=== PATIENT | male | born 1970 | race Caucasian/White ===

== ENCOUNTER 2019-02-08 07:09 | Inpatient (IN) ==
[2019-02-08] MEDS ORDERED: THIAMINE IM ONE (07:20)
[2019-02-08 07:51] LABS: BASO# 0.02 X1000 (0.0-0.2); BASO% 0.3 % (0.0-0.8); EOS# 0.08 X1000 (0.0-0.7); HEMOGLOBIN 17.3 g/dL (14.0-18.0); IMM GRAN# 0.03 X1000 (0.0-0.04); IMM GRAN% 0.4 % (0.0-0.5); LYMPH# 1.69 X1000 (1.2-3.4); MCH 30.8 PG (27-31); MCHC 35.3 g/dL (33-37); MCV 87.2 FL (81-99); MONO# 0.65 X1000 (0.11-0.59); MONO% 8.5 % (1.7-9.3); MPV 10.5 FL (7.4-10.4); NEUT# 5.22 X1000 (1.4-6.5); NEUT% 67.8 % (42.2-75.2); PLT 195 X1000 (130-400); RBC 5.62 XMIL (4.7-6.1); RDW 14.9 % (11.5-14.5); WBC 7.69 X1000 (4.8-10.8)
[2019-02-08 08:01] LABS: AGAP 13; ALBUMIN 4.6 g/dL (3.5-5.0); ALKALINE PHOSPHATASE 43 U/L (32-122); BUN 9 mg/dL (8-22); CALCIUM 8.6 mg/dL (8.8-10.2); CHLORIDE 96 mmol/L (98-107); COSMO 269; CREATININE 1.1 mg/dL (0.7-1.2); ESTIMATED GFR > 60; GLUCOSE 101 mg/dL (70-104); GOT 32 U/L (10-34); GPT 21 U/L (10-44); POTASSIUM 4.4 mmol/L (3.5-5.1); SODIUM 135 mmol/L (136-145); TCO2 27 mmol/L (25-35); TOTAL PROTEIN 7.8 g/dL (6.3-8.3)
--- NOTE | 2019-02-08 10:10 | PROVIDER DOCUMENTATION ---
This chart was entered by Tom Small Scribe, acting as scribe for Todd Gibbons MD. [id number] Abuse/Overdose - General Chief Complaint: Req. Detox Stated Complaint: ALCOHOL Time Seen by Provider: 02/08/19 07:19 Source: patient Allergies/Adverse Reactions: Allergies Allergy/AdvReac Type Severity Reaction Status Date / Time No Known Allergies Allergy Verified 02/08/19 08:53 Home Medications: Home Medication List Medication Instructions Recorded Confirmed Last Taken Type Paroxetine HCl [Paxil] 20 mg PO QAM 07/14/15 02/08/19 03/04/16 09:00 History Losartan Potassium 100 mg PO BID 02/08/19 02/08/19 Unknown History - History of Present Illness-Drug/Alcohol Nature of Presenting Problem: Pt is a 48 yom who presents to the ED with a detox request. Pt states a hx of alcoholism and states he was getting better. Pt reports he lost control of his alcohol intake two weeks ago and states he is now drinking half a case of beer per day. Pt states his last drink was one hour prior to arrival to the ED. Pt requests detox. Rehab has been notified of the pt. This episode of drinking or use began:: other (Two weeks ago, See HPI) Severity: reports: moderate Any injuries associated with this episode of intoxication?: No Similar Symptoms Previously?: No Recently seen or treated by another doctor?: No - Substance Abuse Substance Use: reports: alcohol - Alcohol Abuse Last Drink?: 06:00 Usually drinks:: binge Usual alcohol intake amount?: Half a case a day - Detox/Hospitalizations Previous detox/rehab admissions?: Yes Review of Systems - Adult - REVIEW OF SYSTEMS - ADULT Constitutional: reports: see HPI Eyes: reports: no symptoms reported Ears, Nose, Mouth & Throat: reports: no symptoms reported Cardiovascular: reports: no symptoms reported Respiratory: reports: no symptoms reported Gastrointestinal: reports: no symptoms reported Genitourinary: reports: no symptoms reported Musculoskeletal: reports: no symptoms reported Integumentary: reports: no symptoms reported Neurological: reports: no symptoms reported Psychiatric: reports: see HPI, alcohol/drug dependence Endocrine: reports: no symptoms reported Hematologic/Lymphatic: reports: no symptoms reported Allergic/Immunologic: reports: no symptoms reported All Other Systems: Reviewed and Negative Past History - Adult - PAST MEDICAL HISTORY-ADULT Review of Records: reports: Old Records Reviewed, Nursing Assessment Review, Medications Reviewed, Social history reviewed & non-contributory. Major Childhood Illnesses: reports: denies history Cardiovascular: reports: denies history Respiratory: reports: denies history Gastrointestinal: reports: denies history Obstetrical/Gynecological: reports: denies history Genitourinary: reports: denies history Musculoskeletal: reports: denies history Neurological: reports: denies history Psychiatric: reports: depression Endocrine/Immune: reports: denies history Other Conditions: reports: denies history - PRIOR SURGERIES/PROCEDURES Surgical/Procedure History: reports: appendectomy - IMMUNIZATION STATUS Childhood Immunizations: See Nurse Assessment Flu Vaccine: See Nurse Assessment - FAMILY HISTORY Family History: reviewed, not pertinent - SOCIAL HISTORY Smoking: denies, non-smoker Substance Use: alcohol Alcohol Use Frequency: every day Physical Exam-General - PHYSICAL EXAM-ADULT Initial Vital Signs Reviewed: Yes - CONSTITUTIONAL General Appearance: appears well, no apparent distress - EYES Eyes: PERRL/EOMI, pink conjunctivae - HEAD, EARS, NOSE, MOUTH & THROAT HENMT: moist mucous membranes - NECK Neck: non-tender, full range of motion - RESPIRATORY Respiratory: chest non-tender, lungs clear, normal breath sounds, no pleuratic chest pain, no respiratory distress - CARDIOVASCULAR Cardiovascular: normal peripheral pulses, regular rate, rhythm, no edema, no gallop - GASTROINTESTINAL (ABDOMEN) Abdominal Exam: non tender, soft - MUSCULOSKELETAL Extremity: normal range of motion, non-tender - SKIN Integumentary: normal color, warm/dry - NEUROLOGIC Neurologic: grossly normal, no motor/sensory deficits - PSYCHIATRIC Psych/Mental Status: normal mood/affect, normal thought content, normal thought process, oriented x 3 Progress - PLAN OF CARE/RESULTS Progress/Plan/Lab Results: Vital Signs - 8 hr 02/08/19 07:12 02/08/19 08:54 Temperature 98.6 F Pulse Rate 86 85 Respiratory Rate 18 18 Blood Pressure 168/110 145/94 O2 Sat by Pulse Oximetry 97 95 Laboratory Results - last 24 hr 02/08/19 02/08/19 02/08/19 07:25 07:25 07:25 WBC 7.69 RBC 5.62 Hgb 17.3 Hct 49.0 MCV 87.2 MCH 30.8 MCHC 35.3 RDW Std Deviation 14.9 H Plt Count 195 MPV 10.5 H Immature Gran % (Auto) 0.4 Neut % (Auto) 67.8 Lymph % (Auto) 22.0 [place] % (Auto) 8.5 Eos % (Auto) 1.0 Baso % (Auto) 0.3 Immature Gran # (Auto) 0.03 Neut # (Auto) 5.22 Lymph # (Auto) 1.69 [place] # (Auto) 0.65 H Eos # (Auto) 0.08 Baso # (Auto) 0.02 Sodium 135 L Potassium 4.4 Chloride 96 L Carbon Dioxide 27 Anion Gap 13 BUN 9 Creatinine 1.1 Estimated GFR/1.73 m2 > 60 BUN/Creatinine Ratio 8 Glucose 101 Calculated Osmolality 269 Calcium 8.6 L Total Bilirubin 0.50 AST 32 ALT 21 Alkaline Phosphatase 43 Total Protein 7.8 Albumin 4.6 Globulin 3.0 Albumin/Globulin Ratio 1.0 Plasma/Serum Ethyl Alc 218 H Orders Category Date Time Status Saline Loc NOW Care 02/08/19 10:04 Active ALCOHOL BLOOD Stat Lab 02/08/19 07:25 Completed CBC WITH ELECTRONIC DIFF [HEME] Stat Lab 02/08/19 07:25 Completed COMPREHENSIVE METABOLIC PANEL [CHEM] Stat Lab 02/08/19 07:25 Completed Thiamine Med 02/08/19 07:20 Discontinued 100 mg IM NOW ONE [facility] to [facility] pt and agreed to admit. Dr Jett agreed to admit and is putting in orders. Result Diagrams: 02/08/19 07:25 02/08/19 07:25 - CONSULTS/PCP/HOSPITALIST Notification #1 *Consult/PCP/Hospitalist*: Dr Jett Time Discussed: 10:08 Consult Disposition: Admit Departure - Departure Date of Disposition Decision: 02/08/19 Time of Disposition Decision: 10:08 DIAGNOSIS: Alcoholism Disposition: ADMITTED INPATIENT 09 Certified Medical Emergency: Emergent Condition: Fair Additional Freetext Instructions: ED Follow Up Instructions: You have been treated by a care provider in the Emergency Department. These instructions are being provided to you so you can have an understanding of how to care for yourself upon discharge. Upon discharge from the Emergency Department, you are responsible for making arrangements for follow-up care by a physician of your choice. Take all prescribed medications as directed. Return to the Emergency Department immediately for any new or worsening symptoms. You may call the Physician Referral phone number at [phone] to obtain a list of Physicians who are taking new patients. Referrals and Follow-Ups: Francisco Wesley MD [Primary Care Provider] - - Critical Care Note This patient required my direct & personal management of CC.: No Attestation - Physician/ SEAN Attestation Patient care was provided by Advanced Practice Provider:: No The physician spent face to face time with patient:: Yes Advanced Practice Provider documentation review:: Supervising physician onsite and consulted in the evaluation and care of this patient. The physician did have a face to face encounter with the patient. This chart was documented by the indicated scribe, (Tom Small, [place]) and accurately reflects the services I performed and decisions made by me, Todd Gibbons MD, as attested by the provider's signature.
[2019-02-08] MEDS ORDERED: DESYREL PO PRN (10:53)
[2019-02-08] MEDS ORDERED: DULCOLAX PR PRN (10:53)
[2019-02-08] MEDS ORDERED: TYLENOL PO PRN (10:53)
[2019-02-08] MEDS ORDERED: ZOFRAN ODT PO PRN (10:53)
[2019-02-08] MEDS ORDERED: TUBERSOL ID ONE (10:53)
[2019-02-08] MEDS ORDERED: NICODERM PATCH TD PRN (10:53)
[2019-02-08] MEDS ORDERED: MAALOX PLUS LIQUID PO PRN (10:53)
[2019-02-08] MEDS ORDERED: MOTRIN PO PRN (10:53)
[2019-02-08] MEDS ORDERED: SENOKOT PO PRN (10:53)
[2019-02-08] MEDS ORDERED: IMODIUM PO PRN ×2 (10:53)
[2019-02-08] MEDS ORDERED: D5W 1,000 ML IV PRN (10:53)
[2019-02-08] MEDS ORDERED: ZOFRAN IV PRN (10:53)
[2019-02-08] MEDS ORDERED: ZOFRAN IM PRN (10:53)
[2019-02-08] MEDS ORDERED: NICOTINE GUM BUCCAL PRN (10:53)
[2019-02-08] MEDS ORDERED: PHENOBARBITAL IV PRN (10:53)
[2019-02-08 11:25] LABS: AMYLASE 49 U/L (20-200); LIPASE 32 U/L (13-60)
[2019-02-08 11:37] LABS: URINE SOURCE CLEAN CATCH
[2019-02-08 11:38] LABS: INR 0.94
[2019-02-08 11:46] LABS: UR AMPHETAMINES QUAL NONE DETECTED (NONE DETECT); UR BARBITUATES QUAL NONE DETECTED (NONE DETECT); UR BENZODIAZEPIN QUAL PRESUMPTIVE POSITIVE (NONE DETECT); UR CANNABINOIDS QUAL NONE DETECTED (NONE DETECT); UR COCAINE QUAL NONE DETECTED (NONE DETECT); UR METHADONE QUAL NONE DETECTED (NONE DETECT); UR METHAMPHETAMINE QUAL NONE DETECTED (NONE DETECT); UR OPIATES QUAL PRESUMPTIVE POSITIVE (NONE DETECT); UR OXYCODONE QUAL NONE DETECTED (NONE DETECT); UR PCP QUAL NONE DETECTED (NONE DETECT); UR PROPOXYPHENE QUAL NONE DETECTED (NONE DETECT); UR TCA QUAL NONE DETECTED (NONE DETECT)
[2019-02-08 11:46] LABS: BILIRUBIN URINE NEGATIVE (NEGATIVE); BLOOD URINE NEGATIVE (NEGATIVE); CLARITY CLEAR (CLEAR); COLOR YELLOW; GLUCOSE URINE NEGATIVE (NEGATIVE); KETONE URINE NEGATIVE (NEGATIVE); LEUKOCYTES URINE TRACE (NEGATIVE); NITRITE URINE NEGATIVE (NEGATIVE); PROTEIN URINE NEGATIVE (NEGATIVE); SP GRAVITY URINE 1.005; UROBILINOGEN URINE NORMAL
[2019-02-08 11:47] LABS: URINE BACTERIA NEGATIVE /HFP; URINE CAST NONE SEEN /LPF; URINE CRYSTAL NONE SEEN /HPF; URINE EPITHELIAL CELLS <10 /HPF (<10); URINE RBC <10 /HPF (<10); URINE WBC <10 /HPF (<10); URINE YEAST NONE SEEN /HPF
[2019-02-08] MEDS ORDERED: BENTYL PO PRN (12:54)
[2019-02-08] MEDS ORDERED: SALINE LOCK IV FLUID XX ONE (12:54)
[2019-02-08] MEDS ORDERED: ROBAXIN PO PRN (12:54)
[2019-02-08] MEDS: LIBRIUM PO SCH ×2 (13:54→18:08)
[2019-02-08] MEDS ORDERED: M.V.I.-12 10 ML, FOLIC ACID 1 MG, MAGNESIUM SULFATE 1 GM, THIAMINE 100 MG in NS 1,000 ML IV ONE (14:00)
--- NOTE | 2019-02-08 16:37 | HISTORY AND PHYSICAL ---
CHIEF COMPLAINT: Nausea and vomiting. HISTORY OF PRESENT ILLNESS: The patient is a 48-year-old male who presented to [facility] secondary to nausea, vomiting, abdominal pain, tremors, and myalgias. He notes that he is a heavy drinker in the past. He has been sober for several years and started re drinking due to the of his father. Currently, he is drinking every day again. SOCIAL HISTORY: Patient is . He is employed. Lives at home in [place]. PAST MEDICAL HISTORY: Significant for anxiety and hypertension. He had a concussion due to football. He has chronic anxiety and depression. MEDICATIONS: Paxil and losartan 100. ALLERGIES: No known drug allergies. REVIEW OF SYSTEMS: CIWAscore is elevated at 35, moderate anxiety. He is having tremors. He is restless, agitated, and unable to sit still and easily startled, and easily agitated. He has itching, pins and needle sensation in his skin. Nausea, vomiting, frequent dry heaves, sweating, and headaches. Denies blurred vision, change in vision. Denies any focalized numbness, tingling, or weakness in his extremities. Denies any dysuria, frequency, or urgency. Denies hesitancy, polyuria or polydipsia. Denies skin rashes, weight loss or weight gain. SUBSTANCE ABUSE HISTORY: He has been in treatment facility at [facility] for 30 days in 2012. Remained sober for 5 years. He was back at [facility] in 2018 for 7 days, remained sober for a year. Started drinking at age 10, currently back to half a case of beer a day. Started marijuana at 13, currently does not use. Started depressants at 47, and currently prescribed 3 times a day but he takes all 3 at night. Started opiates at 36; currently takes only as directed FAMILY HISTORY: Noncontributory. PHYSICAL EXAMINATION: VITAL SIGNS: Reviewed. GENERAL: Patient is awake and alert. Currently, in no respiratory distress. HEENT: Normocephalic. NECK: Supple. CARDIOVASCULAR: Regular rate. CHEST: Clear. ABDOMEN: Soft. EXTREMITIES: Moves all extremities. NEUROLOGIC: No focal changes although he is noted to have visible tremors and visible sweating. He is unable to sit still. He is easily startled. ASSESSMENT: 1. Nausea and vomiting. 2. Abdominal pain. 3. Myalgias and paresthesias. 4. Paroxysmal sweating. 5. Alcohol abuse withdrawal and stabilization. 6. Hypertension. PLAN: We will continue patient in the hospital on high-dose Librium taper. Begin discussion regarding naltrexone versus Vivitrol on discharge. Begin counseling. Further orders as needed. cc: Jairon Jett MD MTDD
[2019-02-08] MEDS: SEROQUEL PO PRN (20:56)
[2019-02-08] MEDS ORDERED: APRESOLINE PO ONE (21:04)
[2019-02-08] MEDS ORDERED: APRESOLINE PO PRN (21:07)
[2019-02-09] MEDS: LIBRIUM PO SCH ×4 (00:11→18:33)
[2019-02-09] MEDS: PROTONIX PO SCH (06:03)
[2019-02-09] MEDS: VITAMIN B-1 PO SCH (09:36)
[2019-02-09] MEDS: THERA M PLUS PO SCH (09:36)
[2019-02-09] MEDS: FOLIC ACID PO SCH (09:36)
[2019-02-09] MEDS: ATARAX PO PRN ×2 (09:40→16:11)
[2019-02-09] MEDS: SEROQUEL PO PRN (19:57)
--- NOTE | 2019-02-09 21:21 | PROGRESS NOTE ---
DATE: 02/09/2019 SUBJECTIVE: Patient notes he is feeling okay. Denies any tremors. Denies any myalgias. Denies paresthesias. PHYSICAL EXAMINATION: Vital Signs: Reviewed. General: He is awake, alert, oriented. He is in no current respiratory distress. HEENT: Normocephalic. Neck: Supple. Cardiovascular: Regular rate. No murmurs. Chest: Clear and nonlabored. Extremities: Moves all extremities. Neurologic: No focal changes. Skin: Warm and dry. No rashes. ASSESSMENT: 1. Nausea, vomiting. 2. Abdominal pain. 3. Myalgias. 4. Paresthesias. 5. Paroxysmal sweating. 6. Alcohol abuse withdrawal and stabilization. PLAN: 1. Continue patient in the hospital. 2. Continue intravenous fluids as needed. 3. Continue high dose Librium taper. 4. Will continue counseling. 5. Discussed with patient medication assisted therapy, i.e. naltrexone, on discharge. cc: Jairon Jett MD
[2019-02-10] MEDS: LIBRIUM PO SCH ×4 (00:15→18:03)
[2019-02-10] MEDS: PROTONIX PO SCH (06:22)
[2019-02-10] MEDS: COZAAR PO SCH (09:44)
[2019-02-10] MEDS: FOLIC ACID PO SCH (09:44)
[2019-02-10] MEDS: THERA M PLUS PO SCH (09:44)
[2019-02-10] MEDS: VITAMIN B-1 PO SCH (09:44)
[2019-02-10] MEDS: PAXIL PO SCH (09:44)
[2019-02-11] MEDS: LIBRIUM PO SCH ×2 (00:09→06:18)
[2019-02-11] MEDS: PROTONIX PO SCH (06:18)
--- NOTE | 2019-02-11 07:22 | PROGRESS NOTE ---
DATE: 02/11/2019 SUBJECTIVE: The patient notes that he is doing okay. Symptoms are improving. Denies any fevers or chills. PHYSICAL EXAMINATION: Vital Signs: Reviewed. He is awake and alert. He is in no respiratory distress. HEENT: Neck is supple. Cardiovascular: Regular rate. Chest: Clear. Abdomen: Soft. Extremities: Moves all extremities. Neurologic: No changes. ASSESSMENT: 1. Nausea and vomiting. 2. Abdominal pain. 3. Myalgias and paresthesias. 4. Paroxysmal sweating. 5. Alcohol abuse withdrawal and stabilization. PLAN: We will continue patient in the hospital today. Continue to wean Librium. If he tolerates, hopefully he can be discharged home over the next day or two. cc: Jairon Jett MD
[2019-02-11 07:59] VITALS: BP 126/84
[2019-02-11] MEDS: VITAMIN B-1 PO SCH (08:52)
[2019-02-11] MEDS: FOLIC ACID PO SCH (08:53)
[2019-02-11] MEDS: PAXIL PO SCH (08:53)
[2019-02-11] MEDS: COZAAR PO SCH (08:53)
[2019-02-11] MEDS: THERA M PLUS PO SCH (08:53)
[2019-02-11] MEDS ORDERED: LIBRIUM PO SCH ×2 (09:00→14:00)
[2019-02-11] MEDS ORDERED: REVIA PO SCH (09:00)
--- NOTE | 2019-02-15 19:52 | DISCHARGE SUMMARY ---
ADMISSION DATE: 02/08/2019 DISCHARGE DATE: 02/11/2019 DISCHARGE DIAGNOSES: 1. Nausea and vomiting. 2. Abdominal pain. 3. Myalgias. 4. Paresthesias. 5. Paroxysmal sweating. 6. Tremors. 7. Alcohol abuse withdrawal and stabilization. CONSULTATIONS: None. PROCEDURES: None. BRIEF HOSPITAL COURSE: The patient is a 48-year-old male who presented to [facility] secondary to nausea, vomiting, and abdominal pain. He was having tremors and myalgias. He was in alcohol withdrawal. Thankfully, he had uneventful hospital course. He was placed on high-dose Librium taper, and continued to improve. On discharge, he is awake and alert. He was feeling better. DISPOSITION: Discussed with patient that he needs to avoid all persons, places, and situations which he has been using and abusing in the past. He needs outpatient life counseling as well as alcohol counseling. Discussed with him the use of medication assisted therapy, i.e. naltrexone versus Vivitrol. We will start with naltrexone. He can follow up outpatient with treatment facility of choice. If he desires to proceed with Vivitrol, with no insurance, this would most likely be cost prohibitive. Discussed him that he needs to avoid situations that encourage or remind him to use and abuse. cc: Jairon Jett MD
== END 2019-02-11 10:05 | disposition home or self-care (01) | DRG 897 ==
LOC: P.ED 07:09 → P.MEDSURG 10:46
PROVIDERS: ADMIT Family Medicine; ATTEND Family Medicine

== ENCOUNTER 2019-08-02 14:39 | Inpatient (IN) ==
[2019-08-02] MEDS ORDERED: DULCOLAX PR PRN (16:57)
[2019-08-02] MEDS ORDERED: MAALOX PLUS LIQUID PO PRN (16:57)
[2019-08-02] MEDS ORDERED: PHENOBARBITAL IV PRN (16:57)
[2019-08-02] MEDS ORDERED: IMODIUM PO PRN ×2 (16:57)
[2019-08-02] MEDS ORDERED: NICODERM PATCH TD PRN (16:57)
[2019-08-02] MEDS ORDERED: MOTRIN PO PRN (16:57)
[2019-08-02] MEDS ORDERED: NICOTINE GUM BUCCAL PRN (16:57)
[2019-08-02] MEDS ORDERED: TUBERSOL ID ONE (16:57)
[2019-08-02] MEDS ORDERED: SENOKOT PO PRN (16:57)
[2019-08-02] MEDS ORDERED: DESYREL PO PRN (16:57)
[2019-08-02] MEDS ORDERED: D5W 1,000 ML IV PRN (16:57)
[2019-08-02] MEDS ORDERED: ZOFRAN ODT PO PRN (16:57)
[2019-08-02] MEDS ORDERED: ZOFRAN IV PRN (16:57)
[2019-08-02] MEDS ORDERED: ZOFRAN IM PRN (16:57)
[2019-08-02] MEDS ORDERED: TYLENOL PO PRN (16:57)
[2019-08-02] MEDS ORDERED: BENTYL PO PRN (17:03)
[2019-08-02] MEDS ORDERED: ROBAXIN PO PRN (17:03)
[2019-08-02] MEDS ORDERED: SALINE LOCK IV FLUID XX ONE (17:03)
[2019-08-02 17:09] LABS: URINE SOURCE CLEAN CATCH
[2019-08-02 17:13] LABS: BILIRUBIN URINE NEGATIVE (NEGATIVE); BLOOD URINE NEGATIVE (NEGATIVE); COLOR STRAW; GLUCOSE URINE NEGATIVE (NEGATIVE); KETONE URINE NEGATIVE (NEGATIVE); LEUKOCYTES URINE NEGATIVE (NEGATIVE); NITRITE URINE NEGATIVE (NEGATIVE); PH URINE 6.5; PROTEIN URINE NEGATIVE (NEGATIVE); SP GRAVITY URINE 1.007; TURBIDITY URINE CLEAR (CLEAR); UROBILINOGEN URINE NORMAL (NORMAL)
[2019-08-02 17:14] LABS: UR EPITHELIAL CELLS <10 /HPF (<10); URINE BACTERIA NEGATIVE /HPF; URINE RBC <10 /HPF (<10); URINE WBC <10 /HPF (<10)
[2019-08-02] MEDS: LIBRIUM PO SCH ×2 (17:40→23:21)
[2019-08-02 17:50] LABS: UR AMPHETAMINES QUAL NONE DETECTED (NONE DETECT); UR BARBITUATES QUAL NONE DETECTED (NONE DETECT); UR BENZODIAZEPIN QUAL NONE DETECTED (NONE DETECT); UR CANNABINOIDS QUAL NONE DETECTED (NONE DETECT); UR COCAINE QUAL NONE DETECTED (NONE DETECT); UR METHADONE QUAL NONE DETECTED (NONE DETECT); UR METHAMPHETAMINE QUAL NONE DETECTED (NONE DETECT); UR OPIATES QUAL NONE DETECTED (NONE DETECT); UR OXYCODONE QUAL NONE DETECTED (NONE DETECT); UR PCP QUAL NONE DETECTED (NONE DETECT); UR PROPOXYPHENE QUAL NONE DETECTED (NONE DETECT); UR TCA QUAL NONE DETECTED (NONE DETECT)
[2019-08-02 18:13] LABS: HEMATOCRIT 51.5 % (42.0-52.0); HEMOGLOBIN 17.4 g/dL (14.0-18.0); MCH 30.3 PG (27-31); MCHC 33.8 g/dL (33-37); MCV 89.7 FL (81-99); MPV 10.6 FL (7.4-10.4); RBC 5.74 XMIL (4.7-6.1); WBC 7.91 X1000 (4.8-10.8)
[2019-08-02 18:30] LABS: INR 0.95; PROTIME 13.1 Seconds (11.0-16.0)
[2019-08-02 18:33] LABS: AGAP 15; ALBUMIN 4.5 g/dL (3.5-5.0); ALKALINE PHOSPHATASE 38 U/L (32-122); AMYLASE 60 U/L (20-200); BUN 6 mg/dL (8-22); CALCIUM 9.1 mg/dL (8.8-10.2); CHLORIDE 95 mmol/L (98-107); COSMO 270; CREATININE 1.1 mg/dL (0.7-1.2); ESTIMATED GFR > 60; GLUCOSE 131 mg/dL (70-104); GOT 76 U/L (10-34); GPT 54 U/L (10-44); LIPASE 67 U/L (13-60); POTASSIUM 3.9 mmol/L (3.5-5.1); SODIUM 135 mmol/L (136-145); TCO2 25 mmol/L (25-35); TOTAL PROTEIN 7.9 g/dL (6.3-8.3)
[2019-08-02] MEDS: ATARAX PO PRN (19:52)
[2019-08-02] MEDS: SEROQUEL PO PRN (21:33)
[2019-08-03] MEDS: LIBRIUM PO SCH ×3 (06:26→17:48)
[2019-08-03] MEDS: PROTONIX PO SCH (06:27)
[2019-08-03] MEDS: THERA M PLUS PO SCH (08:56)
[2019-08-03] MEDS: FOLIC ACID PO SCH (08:56)
[2019-08-03] MEDS: VITAMIN B-1 PO SCH (08:56)
[2019-08-03] MEDS ORDERED: M.V.I.-12 10 ML, FOLIC ACID 1 MG, MAGNESIUM SULFATE 1 GM, THIAMINE 100 MG in NS 1,000 ML IV ONE (09:00)
[2019-08-03] MEDS: SEROQUEL PO PRN (21:01)
--- NOTE | 2019-08-03 22:30 | PROGRESS NOTE ---
DATE: 08/03/2019 SUBJECTIVE: Patient notes that he is starting to feel better. Denies fevers, chills. Denies cough or congestion. OBJECTIVE: Vital Signs: Reviewed. Currently afebrile, temperature 98 degrees, pulse 73, respiratory rate 18, BP 133/81. General: Patient is pleasant in no respiratory distress. HEENT: Normocephalic. Neck: Supple. Cardiovascular: Regular rate. Chest: Clear. Abdomen: Soft. Extremities: Moves all extremities. Neurologic: No focal neurological changes. Skin: Warm, dry, no rash. ASSESSMENT: 1. Nausea and vomiting. 2. Abdominal pain. 3. Myalgias. 4. Paresthesias. 5. Alcohol abuse, withdrawal and stabilization. PLAN: We will continue the patient in the hospital, continue to follow high blood pressure, continue counseling. Further orders as needed. cc: Jairon Jett MD
[2019-08-04] MEDS: LIBRIUM PO SCH ×7 (00:43→18:17)
--- NOTE | 2019-08-04 05:40 | HISTORY AND PHYSICAL ---
CHIEF COMPLAINT: Nausea, vomiting. HISTORY OF PRESENT ILLNESS: The patient is a 49-year-old male who presented [facility] [place] [facility] secondary to nausea, vomiting, abdominal pain, myalgias. Notes that he started drinking again. He has been having tremors. He has been unable to stop. He has been having some withdrawal symptoms. SOCIAL HISTORY: Patient is , lives at home. Currently is employed. Lives in [place]. PAST MEDICAL HISTORY: Hypertension, chronic anxiety, history of concussion. MEDICATIONS: Paxil 20 mg, losartan 100 mg. ALLERGIES: No known drug allergies. REVIEW OF SYSTEMS: CIWA score is 33 secondary to nausea, vomiting, abdominal pain, severe anxiety, easily agitated, moderately anxious, easily startled, has auditory disturbances, has mild sensitivity to light, has been sweating and has pins and needles on his skin. Denies diarrhea, constipation, melena, hematochezia. Denies dysuria, frequency, urgency. Denies hematuria. Denies hemoptysis. Denies true fevers. Denies headaches, blurred vision, change in vision. Denies any focalized weakness. FAMILY HISTORY: Noncontributory. SUBSTANCE ABUSE HISTORY: The patient was in treatment in alcohol 2012, stayed sober 5 years; 2017 was back at [facility] for 7 days, stayed sober for 1 year; 2019 was in [facility] [place], stayed sober for 6 months. States he is tired of [*]He is tired of drinking. He wants to find a way to get his life under control. He started drinking at age 10, currently drinks up to 24 beers a day for the past couple months. Started depressants at 13, currently takes all 3 at bedtime. Started opiates at 36, currently only takes as prescribed. PHYSICAL EXAMINATION: VITAL SIGNS: Reviewed and stable. GENERAL: Patient is awake, alert, currently in no respiratory distress. Very pleasant. HEENT: Normocephalic, atraumatic. NECK: Supple. CARDIOVASCULAR: Regular rate. CHEST: Clear, nonlabored. EXTREMITIES: Moves all extremities. NEUROLOGIC: No changes. ASSESSMENT: 1. Nausea and vomiting. 2. Abdominal pain. 3. Tremors. 4. Myalgias. 5. Paresthesias. 6. Paroxysmal sweating. 7. Alcohol abuse withdrawal and stabilization. 8. Hypertension. 9. Chronic anxiety. PLAN: We are going to continue patient in the hospital. Continue counseling as well as assistance will all substances. We will continue Librium. Further orders as needed. We will follow his course. cc: Jairon Jett MD
[2019-08-04] MEDS: PROTONIX PO SCH (06:28)
[2019-08-04] MEDS: THERA M PLUS PO SCH (08:53)
[2019-08-04] MEDS: VITAMIN B-1 PO SCH (08:53)
[2019-08-04] MEDS: PAXIL PO SCH (08:53)
[2019-08-04] MEDS: FOLIC ACID PO SCH (08:53)
[2019-08-04] MEDS: SEROQUEL PO PRN (22:06)
--- NOTE | 2019-08-05 01:59 | PROGRESS NOTE ---
DATE: 08/04/2019 SUBJECTIVE: Patient notes overall feeling a lot better. Denies any fevers, chills. Denies cough, congestion. Denies dysuria, urinary frequency. PHYSICAL EXAMINATION: Vital Signs: Reviewed. Temperature 97.3 degrees, pulse 74, respiratory rate 18, BP 127/70. General: Patient is pleasant, currently in no distress. HEENT: Normocephalic. Neck: Supple. Cardiovascular: Regular rate. Chest: Clear. Abdomen: Soft. Extremities: Moves all extremities. Neurologic: No changes. ASSESSMENT: 1. Nausea and vomiting. 2. Abdominal pain [*] 3. Myalgias. 4. Paresthesias. 5. Paroxysmal sweating. 6. Alcohol abuse, withdrawal and stabilization. PLAN: We are going to continue patient in the hospital. Wean Librium today. We will give 1 small dose of naltrexone in the morning. If tolerates, can do Vivitrol shot and hopefully either home or further rehab tomorrow afternoon. cc: Jairon Jett MD
[2019-08-05] MEDS: PROTONIX PO SCH (06:13)
[2019-08-05 08:22] VITALS: BP 134/79
[2019-08-05] MEDS: LIBRIUM PO SCH ×2 (09:33→13:16)
[2019-08-05] MEDS: FOLIC ACID PO SCH (09:34)
[2019-08-05] MEDS: THERA M PLUS PO SCH (09:34)
[2019-08-05] MEDS: PAXIL PO SCH (09:34)
[2019-08-05] MEDS: VITAMIN B-1 PO SCH (09:34)
[2019-08-05] MEDS ORDERED: REVIA PO ONE (10:12)
[2019-08-05] MEDS: ATARAX PO PRN (11:00)
[2019-08-05] MEDS ORDERED: VIVITROL IM ONE (14:13)
--- NOTE | 2019-08-06 05:23 | DISCHARGE SUMMARY ---
ADMISSION DATE: 08/02/2019 DISCHARGE DATE: 08/05/2019 DISCHARGE DIAGNOSIS: 1. Nausea, vomiting. 2. Abdominal pain. 3. Myalgias. 4. Tremors. 5. Paresthesias. 6. Paroxysmal sweating. 7. Alcohol abuse, withdrawal and stabilization. CONSULTATIONS: None. PROCEDURES: None. BRIEF HOSPITAL COURSE: The patient is a pleasant male who presented to the hospital with nausea, vomiting, abdominal pain, and tremors secondary to alcohol withdrawal. He was placed on high-dose Librium taper. Thankfully, he continued to improve. On discharge, he is alert, oriented. He is in no distress and therefore he will be discharged home. He will follow up outpatient with treatment facility of choice. TIME SPENT: Greater than 30 minutes was spent in total care. Discussed with patient the use of medication assisted therapy, i.e., Vivitrol. He is given a shot on discharge. cc: Jairon Jett MD
== END 2019-08-05 14:00 | disposition home or self-care (01) | DRG 897 ==
LOC: P.DIRADM 15:13 → P.MEDSURG 15:33
PROVIDERS: ADMIT Family Medicine; ATTEND Family Medicine